=== PATIENT | female | born 1935 | race Caucasian/White ===

== ENCOUNTER 2022-02-04 20:53 | Inpatient (IN) | payer MEDICARE, MEDICAID ==
[~2022-02-04] VITALS: Ht 165.1 cm; Wt 45.0 kg
[2022-02-04 23:20] VITALS: BP 162/90
[2022-02-05 06:26] LABS: BASO # 0.1 10*3/uL (0.0-0.1); BASO % 0.9 % (0.0-1.0); EOS # 0.1 10*3/uL (0.0-0.4); EOS % 0.6 % (1.0-4.0); HEMATOCRIT 46.9 % (37.0-47.0); LYMPH # 1.3 10*3/uL (1.3-4.4); LYMPH % 17.1 % (27.0-41.0); MEAN CORPUSCULAR HGB 29.5 pg (27.0-31.0); MEAN CORPUSCULAR HGB CONC 31.3 g/dl (33.0-37.0); MEAN PLATELET VOLUME 11.6 fl (9.6-12.3); MONO # 0.5 10*3/uL (0.1-1.0); MONO % 6.3 % (3.0-9.0); NEUT # 5.9 10*3/uL (2.3-7.9); NEUT % 74.8 % (47.0-73.0); PLATELET COUNT AUTOMATED 267 10*3/uL (130-400); RED BLOOD COUNT 4.99 10*6/uL (4.10-5.10); RED CELL DISTRI WIDTH 14.6 % (0-14.5); WHITE BLOOD COUNT 7.8 10*3/uL (4.8-10.8)
[2022-02-05 06:39] LABS: BUN 25 mg/dl (7-24); CHLORIDE 110 mmol/L (98-107); POTASSIUM 3.9 mmol/L (3.5-5.1); SODIUM 146 mmol/L (136-145)
[2022-02-05 06:53] LABS: ALKALINE PHOSPHATASE 72 U/L (45-117); CHOLESTEROL 216 mg/dL (<200); CREATININE 0.84 mg/dL (0.55-1.02); LDL CHOLESTEROL 133 mg/dL (9-159); SGOT/AST 31 IU/L (3-35); SGPT/ALT 23 U/L (12-78); THYROID STIM HORMONE (HS) 0.186 uIU/ml (0.358-4.75); TRIGLYCERIDES 56 mg/dl (<150)
[2022-02-05 08:13] VITALS: BP 122/68
[2022-02-05 09:25] LABS: VITAMIN D, 25-HYDROXY 13.6 ng/mL (30-100)
[2022-02-05 20:00] VITALS: BP 104/52
[2022-02-06 08:00] VITALS: BP 137/85
[2022-02-06 20:00] VITALS: BP 108/87
[2022-02-07 07:56] VITALS: BP 133/71
[2022-02-07 20:00] VITALS: BP 133/60
[2022-02-08 07:24] VITALS: BP 133/60
[2022-02-08 19:16] VITALS: BP 136/62
[2022-02-09 08:05] VITALS: BP 138/77
[2022-02-09 19:53] VITALS: BP 119/60
[2022-02-10 07:59] VITALS: BP 148/84
[2022-02-10 09:32] VITALS: BP 134/68
[2022-02-10 20:00] VITALS: BP 128/62
[2022-02-11 07:27] LABS: BUN 25 mg/dl (7-24); CHLORIDE 109 mmol/L (98-107); CREATININE 0.86 mg/dL (0.55-1.02); POTASSIUM 4.4 mmol/L (3.5-5.1); SODIUM 143 mmol/L (136-145)
[2022-02-11 07:48] VITALS: BP 160/86
[2022-02-11 18:53] VITALS: BP 141/73
[2022-02-12 08:16] VITALS: BP 140/80
[2022-02-12 20:00] VITALS: BP 138/80
[2022-02-13 07:07] VITALS: BP 154/81
[2022-02-13 20:00] VITALS: BP 140/80
[2022-02-14] VITALS (7 sets, daily range): BP systolic 102–220; BP diastolic 57–110
[2022-02-14 04:48] LABS: BASO # 0.1 10*3/uL (0.0-0.1); BASO % 0.9 % (0.0-1.0); EOS # 0.1 10*3/uL (0.0-0.4); EOS % 1.1 % (1.0-4.0); HEMATOCRIT 43.8 % (37.0-47.0); LYMPH # 1.3 10*3/uL (1.3-4.4); LYMPH % 13.9 % (27.0-41.0); MEAN CELL VOLUME 98.9 fl (81.0-99.0); MEAN CORPUSCULAR HGB 30.2 pg (27.0-31.0); MEAN CORPUSCULAR HGB CONC 30.6 g/dl (33.0-37.0); MEAN PLATELET VOLUME 11.8 fl (9.6-12.3); MONO # 0.7 10*3/uL (0.1-1.0); MONO % 7.1 % (3.0-9.0); NEUT # 6.9 10*3/uL (2.3-7.9); NEUT % 76.1 % (47.0-73.0); PLATELET COUNT AUTOMATED 259 10*3/uL (130-400); RED BLOOD COUNT 4.43 10*6/uL (4.10-5.10); RED CELL DISTRI WIDTH 16.1 % (0-14.5); WHITE BLOOD COUNT 9.1 10*3/uL (4.8-10.8)
[2022-02-14 04:59] LABS: ALKALINE PHOSPHATASE 91 U/L (45-117); BUN 23 mg/dl (7-24); CHLORIDE 107 mmol/L (98-107); CREATININE 0.83 mg/dL (0.55-1.02); POTASSIUM 4.5 mmol/L (3.5-5.1); SGOT/AST 53 IU/L (3-35); SGPT/ALT 47 U/L (12-78); SODIUM 139 mmol/L (136-145); TOTAL PROTEIN 6.8 gm/dL (6.4-8.2)
[2022-02-14] MEDS ORDERED: RIVASTIGMINE TAR6 M1 PO (17:40)
[2022-02-14] MEDS ORDERED: NAMENDA10 MG PO (17:41)
[2022-02-14] MEDS ORDERED: REMERON15 M2 PO (17:41)
[2022-02-14] MEDS ORDERED: VITAMIN D3125 MCG PO (17:42)
[2022-02-14] MEDS ORDERED: NORVASC5 MG PO (17:42)
[2022-02-15 07:00] VITALS: BP 147/82
== END 2022-02-15 11:10 | DRG 885 ==
LOC: 3N 20:53
PROVIDERS: Internal Medicine; Student in an Organized Health Care Education/Training Program; ADMIT Psychiatry & Neurology Psychiatry; ATTEND Psychiatry & Neurology Psychiatry
DX: F33.3 Major depressive disorder, recurrent, severe with psychotic symptoms (principal); E87.0 Hyperosmolality and hypernatremia; E44.0 Moderate protein-calorie malnutrition; Z68.1 Body mass index [BMI] 19.9 or less, adult; G30.9 Alzheimer's disease, unspecified; E03.9 Hypothyroidism, unspecified; E87.8 Other disorders of electrolyte and fluid balance, not elsewhere classified; R73.03 Prediabetes; E78.00 Pure hypercholesterolemia, unspecified; E55.9 Vitamin D deficiency, unspecified; F41.1 Generalized anxiety disorder; I10 Essential (primary) hypertension; F02.80 Dementia in other diseases classified elsewhere, unspecified severity, without behavioral disturbance, psychotic disturbance, mood disturbance, and anxiety